=== PATIENT | male | born 1995 | race Hispanic/Latino ===

== ENCOUNTER 2018-02-11 00:12 | Inpatient (IN) | payer OTHER, BC ==
[2018-02-11] MEDS ORDERED: Tdap Vaccine 0.5 ml Vial (10-64 yrs) IM ONE ×2 (01:36→01:43)
--- NOTE | 2018-02-11 01:36 | ED PDOC ---
HPI: Psych/Substance Abuse Chief Complaint (Provider): overdose History Per: Patient Additional Complaint(s): 22 y/o male self presents to ED stating he took a "handful" of Advil PM tablets and cut his neck and wrists with a knife prior to coming here. Patient states he has been "strung out" on cocaine for the last 2 days, states today used 2grams, and became paranoid and thought the police were coming to his house so he figured he'd rather kill himself then be taken away by the police. Patient denies suicidal/homicidal ideations or acute physical complaints at present. <Audelia Torres C - Last Filed: 02/11/18 05:52> <Velvet Mack - Last Filed: 02/11/18 07:14> Time Seen by Provider: 02/11/18 01:09 Chief Complaint (Nursing): Psychiatric Evaluation Past Medical History Reviewed: Historical Data, Nursing Documentation, Vital Signs Vital Signs: Last Vital Signs Temp 98.6 F 02/11/18 00:18 Pulse 123 H 02/11/18 00:18 Resp 20 02/11/18 00:18 BP 162/103 H 02/11/18 00:18 Pulse Ox 100 02/11/18 00:18 - Medical History PMH: No Chronic Diseases - Surgical History Surgical History: No Surg Hx - Family History Family History: States: No Known Family Hx <Audelia Torres - Last Filed: 02/11/18 05:52> Vital Signs: Last Vital Signs Temp 98.6 F 02/11/18 00:18 Pulse 100 H 02/11/18 02:14 Resp 21 02/11/18 02:14 BP 137/91 H 02/11/18 02:14 Pulse Ox 100 02/11/18 05:54 <Velvet Mack Y - Last Filed: 02/11/18 07:14> - Allergies Allergies/Adverse Reactions: Allergies Allergy/AdvReac Type Severity Reaction Status Date / Time No Known Allergies Allergy Verified 02/11/18 00:18 Review of Systems ROS Statement: Except As Marked, All Systems Reviewed And Found Negative Skin: Positive for: Other (neck/wrist abrasions) <Audelia Torres - Last Filed: 02/11/18 05:52> Physical Exam - Reviewed Nursing Documentation Reviewed: Yes Vital Signs Reviewed: Yes - Physical Exam Appears: Positive for: Well, Non-toxic, No Acute Distress Head Exam: Positive for: ATRAUMATIC, NORMAL INSPECTION, NORMOCEPHALIC Skin: Positive for: Rash (3cm superifical linear laceration anterior neck, 1.5cm superficial linear laceration anterior neck. Wound edges approximate well. No active bleeding. Multiple superficial abrasions to anterior neck) Eye Exam: Positive for: Normal appearance ENT: Positive for: Normal ENT Inspection Cardiovascular/Chest: Positive for: Regular Rate, Rhythm Respiratory: Positive for: Normal Breath Sounds Gastrointestinal/Abdominal: Positive for: Normal Exam Back: Positive for: Normal Inspection Extremity: Positive for: Normal ROM (multiple superficial abrasions bilateral volar wrists/forearms. No active bleeding. FROM. Distal NV/motor intact), Capillary Refill (<2 sec b/l UE). Negative for: Deformity Neurologic/Psych: Positive for: Alert, Oriented (x3) <Audelia Torres C - Last Filed: 02/11/18 05:52> - Laboratory Results Result Diagrams: 02/11/18 01:20 02/11/18 01:20 - ECG ECG: Positive for: Viewed By Me (reviewed by ED attending) ECG Rhythm: Positive for: Sinus Tachycardia O2 Sat by Pulse Oximetry: 100 - Progress ED Course And Treament: labs, urine, ekg, 1:1 observation 2:00 All wounds cleaned with normal saline Two superficial neck lacerations held together using dermabond Bacitracin, telfa, cling applied to arm abrasions 3:30 Patient sleeping; arousable to verbal stimuli. Vitals stable on monitor 5:00 Patient sleeping; arousable to verbal stimuli. Vitals stable on monitor <Audelia Torres C - Last Filed: 02/11/18 05:52> - Laboratory Results Result Diagrams: 02/11/18 01:20 02/11/18 01:20 <Velvet Mack - Last Filed: 02/11/18 07:14> Medical Decision Making Medical Decision Makin Received endorsement from Audelia Torres, pending a call back on poison. 0630 Poison called back, patient is cleared, pending crisis evaluation. 0700 Patient endorsed by me to Dr. Moreno, pending crisis evaluation. Scribe Attestation: Documented by Rosalba Lebron, acting as a scribe for Ross Mack MD. Provider Scribe Attestation: All medical record entries made by the Scribe were at my direction and personally dictated by me. I have reviewed the chart and agree that the record accurately reflects my personal performance of the history, physical exam, medical decision making, and the department course for this patient. I have also personally directed, reviewed, and agree with the discharge instructions and disposition. <Velvet Mack - Last Filed: 02/11/18 07:14> Disposition - Disposition Disposition Time: 06:00 Patient Signed Over To: Velvet Mack Handoff Comments: pending re-eval, crisis eval <Audelia Torres C - Last Filed: 02/11/18 05:52> <Velvet Mack - Last Filed: 02/11/18 07:14> - Clinical Impression Clinical Impression: Laceration of neck, Abrasions of multiple sites, Cocaine abuse, Overdose - Disposition Condition: STABLE Forms: [employer] ([place])
[2018-02-11 01:49] LABS: BASO % 0.3 % (0.0-2.0); EOS % 0.3 % (0.0-4.0); HEMOGLOBIN 15.6 g/dL (12.0-18.0); LYMPH % 20.4 % (20.0-40.0); MEAN CELL VOLUME 95.1 fl (80.0-94.0); MEAN CORPUSCULAR HEMOGLOBIN 33.3 pg (27.0-31.0); MEAN PLATELET VOLUME 10.1 fl (7.2-11.7); MONO # 1.1 K/uL (0.0-0.8); MONO % 11.7 % (0.0-10.0); NEUT # 6.6 K/uL (1.8-7.0); NEUT % 67.3 % (50.0-75.0); NRBC % 0.1 % (0.0-0.0); RBC 4.69 Mil/uL (4.40-5.90); RED CELL DISTRIBUTION WIDTH 12.4 % (11.5-14.5); WHITE BLOOD COUNT 9.8 K/uL (4.8-10.8)
[2018-02-11 01:58] LABS: ACETAMINOPHEN < 10.0 ug/ml (10.0-30.0); SALICYLATE < 1.0 mg/dl
[2018-02-11 02:00] LABS: ALB/GLOB RATIO 1.2 (1.0-2.1); ALBUMIN 4.7 g/dL (3.5-5.0); ALT/SGPT 43 U/L (21-72); AST/SGOT 28 U/L (17-59); BLOOD UREA NITROGEN 10 mg/dl (9-20); CALCIUM 9.8 mg/dL (8.4-10.2); GFR NON-AFRICAN AMERICAN > 60
[2018-02-11 03:09] LABS: URINE BILIRUBIN NEGATIVE (NEGATIVE); URINE BLOOD NEGATIVE (NEGATIVE); URINE CLARITY CLEAR (Clear); URINE COLOR YELLOW (YELLOW); URINE GLUCOSE (UA) NEG (Normal); URINE LEUKOCYTE ESTERASE NEG Leu/uL (Negative); URINE PROTEIN NEGATIVE (NEGATIVE); URINE UROBILINOGEN 0.2-1.0 mg/dL (0.2-1.0)
[2018-02-11 03:33] LABS: BARBITURATES, UR NEGATIVE (NEGATIVE); BENZODIAZEPINES, UR NEGATIVE (NEGATIVE); OPIATES, UR NEGATIVE (NEGATIVE); PHENCYCLIDINE, UR NEGATIVE (NEGATIVE)
[2018-02-11] MEDS ORDERED: Albuterol-Ipratrop 3 mg / 0.5 (3 ml) UD ONE (04:37)
[2018-02-11] MEDS ORDERED: Potassium Chloride 20 mEq ER Tab PO ONE ×3 (05:48→06:48)
--- NOTE | 2018-02-11 07:56 | ED PDOC ---
- Laboratory Results Result Diagrams: 02/11/18 01:20 02/11/18 01:20 - ECG O2 Sat by Pulse Oximetry: 97 (RA) Pulse Ox Interpretation: Normal Medical Decision Making Medical Decision Making: Time: 0700 Patient endorsed to me by Dr. Mack pending crisis evaluation for overdose. Scribe Attestation: Documented by Isauro Garcia, acting as a scribe for Jonna Moreno MD Provider Scribe Attestation: All medical record entries made by the Scribe were at my direction and personally dictated by me. I have reviewed the chart and agree that the record accurately reflects my personal performance of the history, physical exam, medical decision making, and the department course for this patient. I have also personally directed, reviewed, and agree with the discharge instructions and disposition. Disposition Doctor Will See Patient In The: Hospital - Clinical Impression Clinical Impression: Laceration of neck, Abrasions of multiple sites, Cocaine abuse, Overdose - POA Present On Arrival: Falls Or Trauma - Disposition Disposition: Transfer of Care Disposition Time: 11:15 Condition: GUARDED Forms: [employer] ([place])
--- NOTE | 2018-02-11 13:28 | CARD ---
APPROVED REPORT Date of service: 02/11/2018 EKG Measurement Heart [id number] <Conclusion> Sinus rhythm with marked sinus arrhythmia Otherwise normal ECG
--- NOTE | 2018-02-11 13:33 | CARD ---
APPROVED REPORT Date of service: 02/11/2018 EKG Measurement Heart [id number] <Conclusion> Sinus tachycardia Otherwise normal ECG
[2018-02-11 16:26] VITALS: O2SAT 97
[2018-02-11] MEDS ORDERED: Alum-Mag Hydrox-Simethicone Susp (30 mL) PO PRN (19:37)
[2018-02-11] MEDS ORDERED: Magnesium Hydroxide Susp 30 ml UD PO PRN (19:37)
[2018-02-11] MEDS ORDERED: DiphenhydrAMINE 50 mg/ml Inj IM PRN (19:37)
--- NOTE | 2018-02-11 19:53 | PCM.BM ---
<Fer Little - Last Filed: 02/11/18 19:51> Treatment Plan Problems - Problems identified on initial assessmt Hopelessness/Helplessness Date Initiated: 02/11/18 Time Initiated: 17:00 Assessment reference: NA Altered Sleep Patterns Date Initiated: 02/11/18 Time Initiated: 17:00 Assessment reference: NA Self Harm Date Initiated: 02/11/18 Time Initiated: 17:00 Assessment reference: NA Suicidal Behaviors Date Initiated: 02/11/18 Time Initiated: 17:00 Assessment reference: NA <Barbie Schafer - Last Filed: 02/15/18 15:47> Treatment assets and liabiliti Patient Assests: adapts well, cooperative, educated, insightful, motivated, self-reliant, ADL independent, physically healthy, good support system, negotiates basic needs, cognitively intact Patient Liabilities: live alone, substance abuse Family Contact Family involvement: Family/SO is involved Family contact: Patient agrees to contact (Patient agreeable to family contact/involvement but has declined mothers request for family meeting.), Family has been contacted by patient, Telephone contact initiated by staff Family contact name: Kim [phone] Family contacted how many times per week?: 2 Family contact comment: Junior Financial Analyst received call from patients mother (Kim [phone]) requesting updates regarding pts progress and information regarding pts tx plan. Patient has provided 3[facility] tx team with consent for family involvement. Patients mother expressed that patient and family are unhappy with the tx being provided, as patient had a "very brief and uninformative" conversation with the covering psychiatrist and was not started on medications. Pts mother expressed that patient is "bored" and that 3[facility] staff "is going to lose him to a 48 hour notice" if we "don't change the way things are run". Junior Financial Analyst informed pts mother that medications have been ordered (neurontin/wellbutrin) and are expected to be started. Junior Financial Analyst provided extensive psychoeducation regarding nature of tx provided on a voluntary unit such as 3NP (medication management, tx team, group/supportive therapy, aftercare referrals). Patients mother requested that leader writer contact family on 02/14 to schedule family meeting and provide updates regarding discharge planning. Patients mother requested that a letter confirming patients hospitalization be left at nurses station for pts employer. * . Patients mother has been in communication with Dr. Parra to discuss medication management and discharge planning. Patient has reported being visited by family daily since admission. - Goals for Treatment Patient goals for treatment: Patient to continue stabilization on 3NP through medication management and group/supportive therapy to eliminate SI, ensure safety and emphasize importance of community linkages. Patient to be encouraged to attend groups regularly to promote self-awareness, sobriety, and improve in sight, compliance, coping skills and self-esteem. Patient to be provided with referral for appropriate level of aftercare to reduce risk of future hospitalizations and ensure safety in the community. Discharge/Continuing Care - Education Needs Education Needs: Family Medication, Family Diagnosis/Disease Process, Family Coping Skills, Family Community resources, Family Aftercare Safety Plan, Patient Medication, Patient Diagnosis/Disease Process, Patient Coping Skills, Patient Community resources, Patient Aftercare Safety Plan - Discharge Discharge Criteria: Tolerates medication w/o severe side effects, Free of Suicidal thoughts, Free of paranoid thoughts, Normal sleep pattern, Ability to care for self, No longer exhibiting s/s of withdrawal Discharge to:: Home, Other (Patient currently not agreeable to inpatient rehab referrals but is agreeable to outpatient substance abuse treatment.) - Treatment Team Participation Patient/Family/SO Statement: 02/15/18 15:51 TX TEAM NOTE (Late note): Patient attended tx team on 02/14 to discuss progress on 3NP and tx goals. Pt. expressed remorse regarding suicidal gestures leading to admission. Pt. denied sxs of depression or anxiety prior to suicidal gestures. Pt. reported 2 day binge on cocaine, resulting in paranoia. Pt. reported believing the street superintendent were coming to arrest him and cutting wrists/neck with pocket knife. Pt. unable to provide recent stressors. Insight into severity and adverse effects of polysubstance abuse is fair. Pt. denied SI/HI and was able to contract for safety. Pt. able to identify benefits of abstinence/sobriety and was able to express alternate coping mechanisms and social activities. Pt. receptive to feedback and expressed motivation for tx. Pt. goal oriented and discharge focused. Pt. made aware of staff availability. Discussed with Family/SO: Yes Was Patient/Family/SO present at Treatment Team Meeting: Yes <Jacquie Parra - Last Filed: 02/16/18 15:46> - Diagnosis (1) Cocaine abuse Status: Acute Interventions: 02/16/18 15:46 motivational therapy
[2018-02-12 07:34] LABS: BASO % 0.4 % (0.0-2.0); EOS # 0.1 K/uL (0.0-0.7); EOS % 2.2 % (0.0-4.0); HEMOGLOBIN 14.6 g/dL (12.0-18.0); LYMPH # 1.3 K/uL (1.0-4.3); LYMPH % 20.6 % (20.0-40.0); MEAN CELL VOLUME 96.9 fl (80.0-94.0); MEAN CORPUSCULAR HEMOGLOBIN 33.5 pg (27.0-31.0); MEAN CORPUSCULAR HGB CONC 34.5 g/dL (33.0-37.0); MEAN PLATELET VOLUME 9.6 fl (7.2-11.7); MONO # 0.8 K/uL (0.0-0.8); MONO % 12.4 % (0.0-10.0); NEUT # 4.2 K/uL (1.8-7.0); NEUT % 64.4 % (50.0-75.0); NRBC % 0.1 % (0.0-0.0); RBC 4.37 Mil/uL (4.40-5.90); RED CELL DISTRIBUTION WIDTH 12.6 % (11.5-14.5); WHITE BLOOD COUNT 6.5 K/uL (4.8-10.8)
[2018-02-12 07:52] LABS: ALB/GLOB RATIO 1.4 (1.0-2.1); ALBUMIN 4.3 g/dL (3.5-5.0); ALT/SGPT 41 U/L (21-72); AST/SGOT 25 U/L (17-59); BLOOD UREA NITROGEN 13 mg/dl (9-20); CALCIUM 9.4 mg/dL (8.4-10.2); GFR NON-AFRICAN AMERICAN > 60
[2018-02-12 08:00] LABS: T4 5.61 ug/dl (5.5-11.0)
[2018-02-12 08:16] LABS: HDL CHOLESTEROL 45 MG/DL (30-70)
[2018-02-12 08:27] LABS: LDL CHOLESTEROL 90 mg/dL (0-129)
--- NOTE | 2018-02-12 08:49 | PCM.PSYCH ---
Initial Psychiatric Evaluation - Initial Psychiatric Evaluation Type of Admission: Voluntary History of Present Illness and Precipitating Events: This is a 22 yr old male with h/o cocaine abuse and h/o no past psych illness anc pt is admitted because he abused 2 gm of cocaine and became paranoid and suicidal and cut his neck and and wrist and pt walked to the ER and admitted. Current Medications: Active Medications Generic Name Dose Route Start Last Admin Trade Name Freq PRN Reason Stop Dose Admin Al Hydrox/Mg Hydrox/Simethicone 30 ml 02/11/18 19:37 Maalox Plus 30 Ml PO Q4 PRN Dyspepsia Diphenhydramine HCl 50 mg 02/11/18 19:37 Benadryl IM Q6 PRN Extrapyramidal S/S Unable PO Diphenhydramine HCl 50 mg 02/11/18 19:37 Benadryl PO Q6 PRN Extrapyramidal Symptoms Diphenhydramine HCl 50 mg 02/11/18 19:53 Benadryl PO HS PRN Sleep Haloperidol 5 mg 02/11/18 19:37 Haldol PO Q4 PRN Agitation Haloperidol Lactate 5 mg 02/11/18 19:37 Haldol IM Q4 PRN Agitation, Unable to Take PO Lorazepam 2 mg 02/11/18 19:37 Ativan IM Q4 PRN Anxiety/Agitation,Unable PO Lorazepam 2 mg 02/11/18 19:37 Ativan PO Q4 PRN Anxiety/Agitation Magnesium Hydroxide 30 ml 02/11/18 19:37 Milk Of Magnesia PO HS PRN Constipation Past Psychiatric History - Past Psychiatric History Previous Treatment History: None History of Abuse: none. History of ETOH/Drug Use: pt regularly abuses 1 gm of cocaine every weekend and has 6 drinks on weekend. History of Family Illness: none Pertinent Medical Hx (Current Medical&Sleep Prob, Allergies): Allergies Allergy/AdvReac Type Severity Reaction Status Date / Time No Known Allergies Allergy Verified 02/11/18 00:18 No Known Home Med 02/11/18 s/p cuts. Review of Systems - Review of Systems All systems: reviewed and no additional remarkable complaints except Mental Status Examination - Personal Presentation Personal Presentation: Looks stated age - Affect Affect: Constricted - Motor Activity Motor Activity: Calm - Reliability in Providing Information Reliability in Providing Information: Fair - Speech Speech: Relevant - Mood Mood: Depressed, Anxious - Formal Thought Process Formal Thought Process: Hallucinations, Paranoia - Hallucinations/Delusions Hallucinations: Auditory - Obsessions/Compulsions Obsessions: No Compulsions: No - Cognitive Functions Orientation: Person, Place, Situation Sensorium: Alert Attention/Concentration: Easily distracted Abstract Thinking: As evidence by abstract perception of proverbs Estimate of Intelligence: Average Judgement: Imparied, as evidence by: Poor judgement, Imparied, as evidence by: Lack of insight into illness Memory: Recent intact, as evidence by: Ability to recall events of the day, Remote intact, as evidenced by: Ability to recall historical events - Risk Risk: Self-mutilation, Diminished functioning - Strength & Assets Inventory Strength & Assets Inventory: Family support DSM 5 DX - DSM 5 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 Alcohol detox with prn ativan. medical consult.
--- NOTE | 2018-02-12 19:36 | CP.PCM.CON ---
History of Present Illness - History of Present Illness History of Present Illness: 22 yo male with history of cocaine abuse admitted because of suicidal ideation. Review of Systems - Review of Systems All systems: reviewed and no additional remarkable complaints except (aside from those mentioned above, 12 point system review were negative by me) Past Patient History - Tetanus Immunizations Tetanus Immunization: Unknown - Past Medical History & Family History Past Medical History?: No Past Family History: Reviewed and not pertinent - Past Social History Smoking Status: Light Smoker < 10 Cigarettes Daily Chewing Tobacco Use: No Cigar Use: No Alcohol: > 2 Drinks/Day Drugs: Cocaine - CARDIAC Hx Cardiac Disorders: No - PULMONARY Hx Tuberculosis: No - NEUROLOGICAL Hx Neurological Disorder: No HX Cerebrovascular Accident: No Hx Seizures: No - RENAL Hx Chronic Kidney Disease: No - HEMATOLOGICAL/ONCOLOGICAL Hx Cancer: No Hx Human Immunodeficiency Virus (HIV): No - MUSCULOSKELETAL/RHEUMATOLOGICAL Hx Musculoskeletal Disorders: No - GASTROINTESTINAL Hx Gastrointestinal Disorders: No - GENITOURINARY/GYNECOLOGICAL Hx Genitourinary Disorders: No Hx Sexually Transmitted Disorders: No - PSYCHIATRIC Hx Anxiety: Yes Hx Depression: Yes Hx Substance Use: Yes (coke) - SURGICAL HISTORY Hx Surgeries: No - ANESTHESIA Hx Anesthesia: No Meds Allergies/Adverse Reactions: Allergies Allergy/AdvReac Type Severity Reaction Status Date / Time No Known Allergies Allergy Verified 02/11/18 00:18 - Medications Medications: Current Medications Al Hydrox/Mg Hydrox/Simethicone (Maalox Plus 30 Ml) 30 ml PO Q4 PRN PRN Reason: Dyspepsia Bupropion HCl (Wellbutrin) 100 mg PO DAILY [facility] Diphenhydramine HCl (Benadryl) 50 mg IM Q6 PRN PRN Reason: Extrapyramidal S/S Unable PO Diphenhydramine HCl (Benadryl) 50 mg PO Q6 PRN PRN Reason: Extrapyramidal Symptoms Diphenhydramine HCl (Benadryl) 50 mg PO HS PRN PRN Reason: Sleep Gabapentin (Neurontin) 100 mg PO TID [facility] Last Admin: 02/12/18 17:35 Dose: 100 mg Haloperidol (Haldol) 5 mg PO Q4 PRN PRN Reason: Agitation Haloperidol Lactate (Haldol) 5 mg IM Q4 PRN PRN Reason: Agitation, Unable to Take PO Lorazepam (Ativan) 2 mg IM Q4 PRN PRN Reason: Anxiety/Agitation,Unable PO Lorazepam (Ativan) 2 mg PO Q4 PRN PRN Reason: Anxiety/Agitation Magnesium Hydroxide (Milk Of Magnesia) 30 ml PO HS PRN PRN Reason: Constipation Physical Exam - Constitutional Appears: No Acute Distress - Head Exam Head Exam: ATRAUMATIC - Eye Exam Eye Exam: absent: Scleral icterus - ENT Exam ENT Exam: Mucous Membranes Moist - Neck Exam Neck exam: Negative for: Meningismus - Respiratory Exam Respiratory Exam: absent: Rales, Rhonchi, Wheezes, Respiratory Distress - Cardiovascular Exam Cardiovascular Exam: REGULAR RHYTHM, +S1, +S2 - GI/Abdominal Exam GI & Abdominal Exam: Soft. absent: Tenderness - Rectal Exam Rectal Exam: Deferred - Extremities Exam Extremities exam: Negative for: calf tenderness, pedal edema - Back Exam Back exam: NORMAL INSPECTION - Neurological Exam Neurological exam: Alert, Oriented x3 - Psychiatric Exam Psychiatric exam: Normal Affect - Skin Skin Exam: Dry, Intact Results - Vital Signs Recent Vital Signs: Last Vital Signs Temp 98.4 F 02/12/18 16:18 Pulse 83 02/12/18 16:18 Resp 18 02/12/18 16:18 BP 120/84 02/12/18 16:18 Pulse Ox 97 02/11/18 16:22 - Labs Result Diagrams: 02/12/18 07:00 02/12/18 07:00 Labs: Laboratory Results - last 24 hr 02/12/18 02/12/18 02/12/18 07:00 07:00 07:00 WBC 6.5 RBC 4.37 L Hgb 14.6 Hct 42.4 MCV 96.9 H MCH 33.5 H MCHC 34.5 RDW 12.6 Plt Count 177 MPV 9.6 Neut % (Auto) 64.4 Lymph % (Auto) 20.6 Pickett % (Auto) 12.4 H Eos % (Auto) 2.2 Baso % (Auto) 0.4 Neut # (Auto) 4.2 Lymph # (Auto) 1.3 [place]ett # (Auto) 0.8 Eos # (Auto) 0.1 Baso # (Auto) 0.0 Sodium 143 Potassium 4.9 Chloride 106 Carbon Dioxide 30 Anion Gap 12 BUN 13 Creatinine 1.1 Est GFR ( Amer) > 60 Est GFR (Non-Af Amer) > 60 Random Glucose 101 Calcium 9.4 Total Bilirubin 0.6 AST 25 ALT 41 Alkaline Phosphatase 56 Total Protein 7.4 Albumin 4.3 Globulin 3.1 Albumin/Globulin Ratio 1.4 Triglycerides 101 Cholesterol 150 LDL Cholesterol Direct 90 HDL Cholesterol 45 Thyroxine (T4) 5.61 Assessment & Plan (1) Suicidal ideation Status: Acute Comment: psyche is managing
--- NOTE | 2018-02-13 12:59 | PCM.PYCHPN ---
Psychiatric Progress Note - Psychiatric Progress Note Patient Chief Complaint: pt is still anxious but less depressed on meds.pt denies suicidal ideation. Mental Status Examination - Cognitive Function Orientation: Person, Place, Situation - Mood Mood: Depressed, Anxious - Affect Affect: Constricted - Formal Thought Process Formal Thought Process: Hallucinations, Paranoia - Homicidal Ideation Homicidal Ideation: No Goal/Treatment Plan - Goal/Treatment Plan Progress Toward Problem(s) and Goals/Treatment Plan: pt has agreed to start wellbutrin 100 mg daily for depression and neurontin 100 mg bid for anxiety and withdrawl from illicit drugs and alcohol. Alcohol detox with prn ativan. medical consult.
--- NOTE | 2018-02-14 13:35 | PCM.PYCHPN ---
Psychiatric Progress Note - Psychiatric Progress Note Patient seen today, length of contact: pt evaluated discussed with team chart reviewed Patient Chief Complaint: I am used to fill my time with drugs Problems Identified/Issues Discussed: pt evaluated with treatment team, reported using cannabis since age 15 resulting in legal charges and completing a high focus program while on probation, since then pt has been using cannabis, K2, opiates and cocaine, recently cocaine has been substance of choice, pt stated that while intoxicated, he became paranoid thinking the police is coming to arrest him, became worried about consequences that is why he cut his wrist and neck as an attempt top end his life so he would not face the consequences of being arrested and avoiding facing his parents pt on the unit denied active suicidal ideation, reported clearing off fo the paranoid delusions, discussed increasing the dose of wellbutrin, no current reported side effects, pt in agreement of starting outpatient rehab and individual therapy on discharge, motivational therapy provided, encouraged pt to attaend groups pt denied any current thoughts of self harm on the unit and denied perceptual disturbances DSM 5 Symptoms Update: 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 polysubstance use disorder depression Medication Change: Yes (increase wellbutrin) Medical Record Reviewed: Yes Mental Status Examination - Cognitive Function Orientation: Person, Place, Situation Attention: WNL Concentration: WNL Association: WNL Fund of Knowledge: WNL Decription of patient's judgement and insights: partial insight, fair judgment - Mood Mood: Depressed, Anxious - Affect Affect: Constricted - Speech Speech: Appropriate - Formal Thought Process Formal Thought Process: Hallucinations, Paranoia Psychotic Thoughts and Behaviors: pt reported clearing off of the delusions - Suicidal Ideation Suicidal Ideation: No - Homicidal Ideation Homicidal Ideation: No Goal/Treatment Plan - Goal/Treatment Plan Need for Continued Stay: Severe depression anxiety, Discharge may exacerbated symptoms Progress Toward Problem(s) and Goals/Treatment Plan: continue neurontin 100mg tid increase wellbutrin 150mg daily motivational group and supportive therapy referral to outpatient rehab and individual therapy pt has declined to have family meeting, but agreed to contact his mother Kim at [phone] on talking to he mother she expressed concerns in reference to pt treatment, requesting him to be discharged, explained to mother that at current time treatment plan and discharge plans will be discussed with pt
[2018-02-14 15:58] LABS: HEPATITIS B SURFACE AG Negative (NEGATIVE)
[2018-02-14 16:03] LABS: HEPATITIS A IGM NEGATIVE (NEGATIVE); HEPATITIS B CORE AB NEGATIVE (NEGATIVE)
[2018-02-14 16:15] LABS: HEPATITIS C ANTIBODY NEGATIVE (NEGATIVE)
[2018-02-15] MEDS: buPROPion SR 150 MG TABLET PO SCH (08:46)
--- NOTE | 2018-02-15 11:48 | PCM.PYCHPN ---
Psychiatric Progress Note - Psychiatric Progress Note Patient seen today, length of contact: pt evaluated discussed with team chart reviewed Patient Chief Complaint: I had hard time falling asleep Problems Identified/Issues Discussed: pt evaluated with treatment team, reported using cannabis since age 15 resulting in legal charges and completing a high focus program while on probation, since then pt has been using cannabis, K2, opiates and cocaine, recently cocaine has been substance of choice, pt stated that while intoxicated, he became paranoid thinking the police is coming to arrest him, became worried about consequences that is why he cut his wrist and neck as an attempt top end his life so he would not face the consequences of being arrested and avoiding facing his parents pt on the unit denied active suicidal ideation, reported clearing off fo the paranoid delusions, discussed increasing the dose of wellbutrin, no current reported side effects, pt in agreement of starting outpatient rehab and individual therapy on discharge, motivational therapy provided, encouraged pt to attaend groups pt denied any current thoughts of self harm on the unit and denied perceptual disturbances DSM 5 Symptoms Update: pt evaluated, reported better mood with wellbutrin, no reported side effects with increasing the dose, pt complained of poor sleep with early insomnia, motivational therapy provided, discussed the effect of substance use on sleep pattern, discussed starting trazodone pt motivated to start outpatient rehab, attending groups denied any current suicidal ideation, denied perceptual disturbances Medication Change: Yes (start trazodone ) Medical Record Reviewed: Yes Mental Status Examination - Cognitive Function Orientation: Person, Place, Situation Attention: WNL Concentration: WNL Association: WNL Fund of Knowledge: WNL Decription of patient's judgement and insights: partial insight, fair judgment - Mood Mood: Depressed, Anxious - Affect Affect: Constricted - Speech Speech: Appropriate - Formal Thought Process Formal Thought Process: Hallucinations, Paranoia Psychotic Thoughts and Behaviors: pt reported clearing off of the delusions - Suicidal Ideation Suicidal Ideation: No - Homicidal Ideation Homicidal Ideation: No Goal/Treatment Plan - Goal/Treatment Plan Need for Continued Stay: Severe depression anxiety, Discharge may exacerbated symptoms Progress Toward Problem(s) and Goals/Treatment Plan: continue neurontin 100mg tid wellbutrin 150mg daily trazodone 50mg qhs motivational group and supportive therapy referral to outpatient rehab and individual therapy
[2018-02-16] MEDS: buPROPion SR 150 MG TABLET PO SCH (09:15)
--- NOTE | 2018-02-16 16:25 | PCM.PYCHPN ---
Psychiatric Progress Note - Psychiatric Progress Note Patient seen today, length of contact: pt evaluated discussed with team chart reviewed Patient Chief Complaint: I slept better with trazodone Problems Identified/Issues Discussed: pt evaluated , reported improved mood, related that to improved sleep with trazodone, no reported side effects of wellbutrin, motivational therapy provided discussed with pt effect of cocaine and alcohol use on current mental status, pt agreed to be linked to outpatient rehab program pt denied any current thoughts of self harm on the unit and denied perceptual disturbances DSM 5 Symptoms Update: depression cocaine use disorder alcohol use disorder Medication Change: No Medical Record Reviewed: Yes Mental Status Examination - Cognitive Function Orientation: Person, Place, Situation Attention: WNL Concentration: WNL Association: WNL Fund of Knowledge: [facility] Decription of patient's judgement and insights: partial insight, fair judgment - Mood Mood: Depressed, Anxious - Affect Affect: Constricted - Speech Speech: Appropriate - Formal Thought Process Formal Thought Process: No Impairment Psychotic Thoughts and Behaviors: pt reported clearing off of the delusions - Suicidal Ideation Suicidal Ideation: No - Homicidal Ideation Homicidal Ideation: No Goal/Treatment Plan - Goal/Treatment Plan Need for Continued Stay: Severe depression anxiety, Discharge may exacerbated symptoms Progress Toward Problem(s) and Goals/Treatment Plan: continue neurontin 100mg tid wellbutrin 150mg daily trazodone 50mg qhs motivational group and supportive therapy referral to outpatient rehab and individual therapy
[2018-02-16 16:29] VITALS: RESP 18
[2018-02-17] MEDS: buPROPion SR 150 MG TABLET PO SCH (08:38)
[2018-02-17 09:03] VITALS: BP 121/77; PULSE 88; TEMP 98.5
--- NOTE | 2018-02-17 10:56 | PCM.PYCHDC ---
Mental Status Examination - Mental Status Examination Orientation: Person, Place, Situation Memory: Intact Mood: Neutral Affect: Broad Speech: Appropriate Attention: WNL Concentration: WNL Association: WNL Fund of Knowledge: WNL Formal Thought Process: No Impairment Description of patient's judgement and insight: partial insight, fair judgment Psychotic Thoughts and Behaviors: pt denied psychotic symptoms, non elicited Suicidal Ideation: No Current Homicidal Ideation?: No Discharge Summary - Discharge Note Reason for Hospitalization: This is a 22 yr old male with h/o cocaine abuse and h/o no past psych illness anc pt is admitted because he abused 2 gm of cocaine and became paranoid and suicidal and cut his neck and and wrist and pt walked to the ER and admitted. Consultations:: List each consultation separately and include: 1. Reason for request. 2. Findings. 3. Follow-up Summary of Hospital Course include:: 1. Description of specific treatment plan utilized for patients during their course of treatmen. 2. Summarize the time- course for resolution of acute symptoms and/or regressed behaviors. 3. Describe issues identified and worked on during hospitalization. 4. Describe medication utilized. 5. Describe medical problems identified and treated. 6. Reassessment of suicide risk Summary of Hospital Course: pt on admission presented with depressed mood and affect, insomnia pt was started on wellbutrin, it was gradually increased to 150mg . 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
== END 2018-02-17 11:05 | disposition home or self-care (01) | DRG 881 ==
LOC: H.ER 00:12 → H.ERHOLD 11:13 → H.PSYCH 16:30
PROVIDERS: ADMIT Psychiatry & Neurology Psychiatry; ATTEND Psychiatry & Neurology Psychiatry
PROC: HZ2ZZZZ Detoxification Services for Substance Abuse Treatment (ICD-10-PCS; principal; 2018-02-11)
PROC: HZ52ZZZ Individual Psychotherapy for Substance Abuse Treatment, Cognitive-Behavioral (ICD-10-PCS; 2018-02-11)
PROC: HZ59ZZZ Individual Psychotherapy for Substance Abuse Treatment, Supportive (ICD-10-PCS; 2018-02-11)
PROC: HZ57ZZZ Individual Psychotherapy for Substance Abuse Treatment, Motivational Enhancement (ICD-10-PCS; 2018-02-11)
PROC: GZHZZZZ Group Psychotherapy (ICD-10-PCS; 2018-02-11)
PROC: 3E0234Z Introduction of Serum, Toxoid and Vaccine into Muscle, Percutaneous Approach (ICD-10-PCS; 2018-02-11)
DX: F32.9 Major depressive disorder, single episode, unspecified (principal); F14.159 Cocaine abuse with cocaine-induced psychotic disorder, unspecified; F14.14 Cocaine abuse with cocaine-induced mood disorder; F10.10 Alcohol abuse, uncomplicated; Y90.0 Blood alcohol level of less than 20 mg/100 ml; Z23 Encounter for immunization; S11.91XA Laceration without foreign body of unspecified part of neck, initial encounter; G47.00 Insomnia, unspecified; F41.9 Anxiety disorder, unspecified; S60.812A Abrasion of left wrist, initial encounter; S60.811A Abrasion of right wrist, initial encounter; X78.1XXA Intentional self-harm by knife, initial encounter; Y92.009 Unspecified place in unspecified non-institutional (private) residence as the place of occurrence of the external cause; F17.210 Nicotine dependence, cigarettes, uncomplicated; T39.312A Poisoning by propionic acid derivatives, intentional self-harm, initial encounter